=== PATIENT | female | born 1965 | race Caucasian/White ===

== ENCOUNTER 2018-11-02 19:01 | Emergency (ER) | payer BC, OTHER ==
[~2018-11-02] VITALS: Ht 167.6 cm; Wt 81.3 kg
[~2018-11-02 19:01] MED LIST: CIPR500T4 PO; HYDR-4011 PO; LISI20TA PO; MAG-19 PO; OMEP20CA16 PO; ONDA4TAB14 PO
[2018-11-02 19:11] VITALS: Ht 167.6 cm; Wt 81.3 kg
[2018-11-02] MEDS ORDERED: ONDANSETRON 4 MG INJ IV STA (23:02)
[2018-11-02] MEDS ORDERED: morphine 4 MG/ML VIAL IV STA (23:02)
[2018-11-03] MEDS ORDERED: CEFTRIAXONE 1 GM/50 ML (PMX) 50 ML IVPB ONE (00:30)
[2018-11-03 01:00] VITALS: BP 138/93; PULSE 62; RESP 17
[2018-11-03] MEDS ORDERED: CIPR500T4 PO (01:10)
[2018-11-03] MEDS ORDERED: IBUP-1542 PO (01:10)
--- NOTE | 2018-11-03 01:17 | ERD ---
ER Documentation Chief Complaint Chief Complaint L flank pain radiating to front x 3 days HPI Is a very pleasant 53-year-old female is a very pleasant patient comes in with a left flank pain rating to the front for 3 days. Pain mild to moderate intensity patient is also had urgency frequency of urination. Has had subjective fevers but no chills. Mild nausea but no vomiting. No recent travel. No sick contacts. No trauma. ROS All systems reviewed and are negative except as per history of present illness. Medications Home Meds Active Scripts Ibuprofen* (Motrin*) 600 Mg Tab, 600 MG PO Q6, #30 TAB Prov:MIRA ROSS 11/03/18 Ciprofloxacin Hcl* (Ciprofloxacin Hcl*) 500 Mg Tablet, 500 MG PO BID for 7 Days, TAB Prov:MIRA ROSS. 11/03/18 Ciprofloxacin Hcl* (Ciprofloxacin Hcl*) 500 Mg Tablet, 500 MG PO BID for 10 Days, TAB Prov:NOÉ SHERMAN NP 03/16/16 Ondansetron (Ondansetron Odt) 4 Mg Tab.rapdis, 4 MG PO Q8 PRN for NAUSEA AND/OR VOMITING, #30 TAB Prov:NOÉ SHERMAN NP 03/16/16 Hydrocodone/Acetaminophen (Traver 5-325 Tablet) 1 Each Tablet, 1 TAB PO Q6H PRN for PAIN, #20 TAB Prov:NOÉ SHERMAN NP 03/16/16 Magaldrate/Simethicone* (Mylanta*) 355 Ml Susp, 30 ML PO QID PRN for GASTROINTESTINAL UPSET, #1 BOTTLE Prov:NOÉ SHERMAN NP 03/16/16 Omeprazole* (Omeprazole*) 20 Mg Capsule.dr, 20 MG PO DAILY, #30 Prov:NOÉ SHERMAN NP 03/16/16 Reported Medications Lisinopril* (Prinivil*) 20 Mg Tablet, 20 MG PO DAILY 12/07/12 Allergies Allergies: Coded Allergies: No Known Allergy (Unverified , 03/16/16) PMhx/Soc History of Surgery: No Anesthesia Reaction: No Hx Neurological Disorder: No Hx Respiratory Disorders: No Hx Cardiac Disorders: Yes (HTN) Hx Psychiatric Problems: No Hx Miscellaneous Medical Probl: No Hx Alcohol Use: No Hx Substance Use: No Hx Tobacco Use: No Smoking Status: Never smoker Physical Exam Vitals Vital Signs Date Temp Pulse Resp B/P (MAP) Pulse Ox O2 O2 Flow FiO2 Time Delivery Rate 11/03/18 62 17 138/93 99 Room Air 01:00 (108) 11/03/18 59 12 130/92 100 Room Air 00:30 (105) 11/03/18 62 13 122/85 100 Room Air 00:00 (97) 11/02/18 70 18 128/92 100 Room Air 23:36 (104) 11/02/18 98.1 85 16 122/83 99 19:11 (96) Physical Exam Const: No acute distress Head: Atraumatic Eyes: Normal Conjunctiva ENT: Normal External Ears, Nose and Mouth. Neck: Full range of motion. No meningismus. Resp: Clear to auscultation bilaterally Cardio: Regular rate and rhythm, no murmurs Abd: Soft, non tender, non distended. Normal bowel sounds Skin: No petechiae or rashes Back: No midline or flank tenderness Ext: No cyanosis, or edema Neur: Awake and alert Psych: Normal Mood and Affect Result Diagram: 11/02/18 2300 11/02/18 230 Results 24 hrs Laboratory Tests Test 11/02/18 23:00 11/02/18 23:33 White Blood Count 5.5 10^3/ul Red Blood Count 4.00 10^6/ul Hemoglobin 11.6 g/dl Hematocrit 35.5 % Mean Corpuscular Volume 88.8 fl Mean Corpuscular Hemoglobin 29.0 pg Mean Corpuscular Hemoglobin Concent 32.7 g/dl Red Cell Distribution Width 11.9 % Platelet Count 210 10^3/UL Mean Platelet Volume 9.8 fl Immature Granulocytes % 0.200 % Neutrophils % 45.5 % Lymphocytes % 39.2 % Monocytes % 9.4 % Eosinophils % 5.2 % Basophils % 0.5 % Nucleated Red Blood Cells % 0.0 /100WBC Immature Granulocytes # 0.010 10^3/ul Neutrophils # 2.5 10^3/ul Lymphocytes # 2.2 10^3/ul Monocytes # 0.5 10^3/ul Eosinophils # 0.3 10^3/ul Basophils # 0.0 10^3/ul Nucleated Red Blood Cells # 0.0 10^3/ul Sodium Level 140 mmol/L Potassium Level 3.8 mmol/L Chloride Level 102 mmol/L Carbon Dioxide Level 29 mmol/L Anion Gap 9 Blood Urea Nitrogen 10 mg/dl Creatinine 0.70 mg/dl Est Glomerular Filtrat Rate mL/min > 60 mL/min Glucose Level 100 mg/dl Calcium Level 10.1 mg/dl Total Bilirubin 0.4 mg/dl Direct Bilirubin 0.00 mg/dl Indirect Bilirubin 0.4 mg/dl Aspartate Amino Transf (AST/SGOT) 27 IU/L Alanine Aminotransferase (ALT/SGPT) 24 IU/L Alkaline Phosphatase 73 IU/L Total Protein 8.0 g/dl Albumin 4.6 g/dl Globulin 3.40 g/dl Albumin/Globulin Ratio 1.35 Lipase 71 U/L Urine Color STRAW Urine Clarity SLIGHTLY CLOUDY Urine pH 6.0 Urine Specific [place] 1.008 Urine Ketones NEGATIVE mg/dL Urine Nitrite NEGATIVE mg/dL Urine Bilirubin NEGATIVE mg/dL Urine Urobilinogen NEGATIVE mg/dL Urine Leukocyte Esterase 2+ [place]/ul Urine Microscopic RBC 4 /HPF Urine Microscopic WBC 17 /HPF Urine Squamous Epithelial Cells FEW /HPF Urine Bacteria FEW /HPF Urine Hemoglobin 1+ mg/dL Urine Glucose NEGATIVE mg/dL Urine Total Protein NEGATIVE mg/dl Current Medications Medications Dose Sig/Marianne Start Time Status Last (Trade) Ordered Route PRN Stop Time Admin Dose Reason Admin Morphine 4 mg ONCE STAT 11/02/18 DC 11/02/18 Sulfate IV 23:02 23:27 (morphine) 11/02/18 23:03 Ondansetron 4 mg ONCE STAT 11/02/18 DC 11/02/18 HCl (Zofran IV 23:02 23:27 Inj) 11/02/18 23:03 Ceftriaxone 50 ml @ ONCE ONCE 11/03/18 DC 11/03/18 Sodium 100 mls/hr IVPB 00:30 00:25 11/03/18 00:59 Procedures/MDM Medical decision making: Very pleasant patient with flank pain and positive urinalysis. Given Rocephin here post urine culture. At this point clinically stable for trial of outpatient management of presumptive diagnosis of pyelonephritis. CT showed no surgical issues. Patient was discharged home with Cipro and Motrin. Follow-up with PCP. Patient's gastrointestinal symptoms have stabilized while in the department. No evidence of severe dehydration, sepsis, or surgical abdomen. Extensive discussion with family and patient that occult disease cannot be ruled out. 8 hour recheck for repeat abdominal exam is planned. Departure Diagnosis: Primary Impression: Flank pain Condition: Stable Patient Instructions: Pyelonephritis, Female (Adult) MIRA ROSS Nov 03, 2018 01:17
== END 2018-11-03 01:30 | disposition home or self-care (01) ==
LOC: E/R 19:01
DX: R10.9 Unspecified abdominal pain (principal); I10 Essential (primary) hypertension; R11.0 Nausea
CPT/HCPCS: 36415; 74176; 80053; 81001; 83690; 85025; 87086; 96365; 96375; 99285; J0696; J2270; J2405